=== PATIENT | female | born 1995 | race Caucasian/White ===

== ENCOUNTER 2024-08-08 20:21 | Emergency (ER) | payer OTHER, SELFPAY ==
[2024-08-08] VITALS (14 sets, daily range): BP systolic 111–122; BP diastolic 71–80; PULSE 55–65; RESP 12–19; TEMP 33.6–35.2; O2SAT 97–99
[2024-08-08] MEDS: DEXTROSE 50% 25 GM/50 ML SYRINGE IV PUSH ×2 (20:35→20:56)
[2024-08-08 20:45] LABS: Glucose Point of Care 74 mg/dl (65-105)
[2024-08-08 20:47] LABS: Glucose Point of Care < 20 mg/dl (65-105)
[2024-08-08 20:52] LABS: Basophils Absolute Auto 0.1 K/mm3 (0.0-0.1); Basophils Percent Auto 0.6 % (0.2-1.2); Eosinophils Absolute Auto 0.1 K/mm3 (0-0.3); Eosinophils Percent Auto 0.9 % (0-4.4); Hematocrit 42.3 % (37.0-47.0); Hemoglobin 14.2 g/dL (12.0-15.0); Immature Granulocyte Absolute 0.03 K/mm3 (0.00-0.031); Immature Granulocyte Percent A 0.3 % (0-0.5); Lymphocytes Absolute Auto 2.41 K/mm3 (0.9-3.2); Lymphocytes Percent Auto 22.8 % (18.3-44.2); Mean Corpuscular HGB Conc 33.6 g/dl (32-36); Mean Corpuscular Hemoglobin 31.3 pg (26-34); Mean Corpuscular Volume 93.2 fl (80-100); Mean Platelet Volume 9.9 fl (7.4-10.4); Monocytes Percent Auto 9.7 % (2.6-8.5); Neutrophils Percent Auto 65.7 % (45.5-73.1); Platelet Count Result 248 k/mm3 (150-375); Red Blood Count 4.54 M/mm3 (4.2-5.4); Red Cell Distribution Width 12.5 % (11.5-14.5); White Blood Count 10.6 K/mm3 (4.5-10.0)
[2024-08-08 21:09] LABS: Alanine Aminotransferase 18 U/L (6-35); Albumin Level 4.4 g/dL (3.5-5.1); Alkaline Phosphatase 43 U/L (38-126); Anion Gap 10 mmol/L (4-12); Aspartate Amino Transferase 26 U/L (14-36); Bilirubin,Total 0.2 mg/dL (0.2-1.3); Blood Urea Nitrogen 15 mg/dL (7-17); Calcium 9.2 mg/dL (8.4-10.2); Carbon Dioxide 24 mmol/L (22-30); Chloride 106 mmol/L (98-107); Estimated Glomerular Filt Rate > 60; Glucose 68 mg/dL (65-110); Potassium 2.7 mmol/L (3.4-5.0); Sodium 140 mmol/L (137-145)
--- NOTE | 2024-08-08 21:14 | ED.SYNCOPE ---
HPI - Syncope General Chief Complaint: Syncope Stated Complaint: diabetic-diaphoretic, syncope, confusion Time Seen by Provider: 08/08/24 20:45 Source: patient and family (friend) Mode of arrival: ambulatory Limitations: altered mental status History of Present Illness HPI narrative: Patient presents with altered mental status. Her friend provides history. Friend made dinner and had noted patient was in bed under the covers, presumably resting. Brought her dinner at 7:30 and she seemed groggy. WHen she checked on her again however, she hadn't eaten dinner and was not responding to questions. Patient was diaphoretic so friend brought her immediately to the ED. Patient takes Lantus 23U QHS; last dose was last night, not yet taken tonight. She also uses short acting Lispro 3U TID. Patient initially nor responding but history obtained after 1 amp glucose administered. She states she has been in her baseline state of health. Denies being unwell recently. no nausea, cough, diarrhea. No abdominal pain. She states she just waited too long to eat. Her PCP is Dr Armijo in [place]. Does not have an learning disabilities specialist but wants one. Is asking what her HA1C is since it was 11.3% when tested at her last PCP appointment, [birth year]. Related Data Allergies Allergy/AdvReac Type Severity Reaction Status Date / Time No Known Allergies Allergy Verified 08/08/24 20:56 COUNTS INCLUDE 234 BEDS AT THE [facility] Past Medical History Medical History (Updated 08/09/24 @ 20:04 by Norma Montano MD) Insulin dependent diabetes mellitus Type 1 diabetes mellitus Social History Social History Living arrangements: with roommate(s) Exam Narrative: GENERAL: well-nourished, and in no acute distress. HEAD: Normocephalic, atraumatic. EYES: Non injected, non icteric ENT: Nares clear, no rhinorrhea or epistaxis. NECK: Supple. CHEST: Speaking in full sentences. No respiratory distress. HEART: Bradycardic rate and rhythm. . ABDOMEN: Soft, nondistended. EXTREMITIES: Normal range of motion. No lower extremity edema. SKIN: Warm, dry, no rash. NEURO: No focal deficits. Alert and oriented x3. Still a bit groggy just after receiving first amp but answering questions. PSYCH: Normal mood and affect. Course Vital Signs Vital signs: Vital Signs Pulse Rate 55 L 08/08/24 20:35 Respiratory Rate 16 08/08/24 20:35 Blood Pressure 122/78 08/08/24 20:35 Pulse Oximetry 99 08/08/24 20:35 Oxygen Delivery Room Air 08/08/24 20:35 Temperature 97.4 F L 08/09/24 02:46 Pulse Rate 87 08/09/24 02:46 Respiratory Rate 12 08/09/24 02:46 Blood Pressure 118/63 08/09/24 02:46 Pulse Oximetry 98 08/09/24 02:46 Oxygen Delivery Room Air 08/08/24 22:29 MDM - Syncope MDM Narrative Medical decision making narrative: Patient with Type 1 diabetes mellitus presents after being found altered, minimally responsive and diaphoretic by friend/roommate. In the ED her VS are initially notable for mild bradycardia, suspect normal for her age and body habitus. Point care glucose in triage was 17mg/dL. Patient denies any preceding sick symptoms, only that she had taken her insulin but hadn't eaten. Patient received 1 amp of glucose initially with improvement of blood sugar to 74 mg/dL. Because she still remains intermittently confused, another amp is ordered. Patient has a critically low potassium level of 2.7. Oral and IV repletion/supplementation is ordered as is a magnesium lab. Mild leukocytosis. Patient noted to have a rectal temperature less than 94? F. Manny Hugger applied TSH ordered. Magnesium and TSH were both normal. Warm IV fluids ordered. Glucosuria. test negative. Repeat BMP now with hyperkalemia. Albuterol and glucagon administered. Possible hemolysis contributing. Her temperature normalizes, 97.3F. She has successfully p.o. challenged and has been on her phone per the nurse. Multiple blood glucose readings appropriate and stable. Patient discharged and advised to continue to take insulin, eat regularly, and follow up with PCP. Also provided contact info for learning disabilities specialist. Lab Data Attestation: I reviewed the patient's lab results. Lab results narrative: Normal renal function 08/08/24 20:46 08/09/24 00:20 Labs: Lab Results 08/08/24 08/08/24 08/08/24 Range/Units 20:29 20:43 20:45 WBC (4.5-10.0) K/mm3 RBC (4.2-5.4) M/mm3 Hgb (12.0-15.0) g/dL Hct (37.0-47.0) % MCV (80-100) fl MCH (26-34) pg MCHC (32-36) g/dl RDW (11.5-14.5) % Plt Count (150-375) k/mm3 MPV (7.4-10.4) fl Immature Gran % (Auto) (0-0.5) % Neut % (Auto) (45.5-73.1) % Lymph % (Auto) (18.3-44.2) % Imperial % (Auto) (2.6-8.5) % Eos % (Auto) (0-4.4) % Baso % (Auto) (0.2-1.2) % Lymph # (Auto) (0.9-3.2) K/mm3 Imperial # (Auto) (0.1-0.6) K/mm3 Eos # (Auto) (0-0.3) K/mm3 Baso # (Auto) (0.0-0.1) K/mm3 Abs Immat Gran (auto) (0.00-0.031) K/mm3 Absolute Neuts (auto) (1.3-6.7) K/mm3 Absolute Nucleated RBC (0.0-0.012) K/mm3 Nucleated RBC % (0.0-0.2) % Sodium (137-145) mmol/L Potassium (3.4-5.0) mmol/L Chloride (98-107) mmol/L Carbon Dioxide (22-30) mmol/L Anion Gap (4-12) mmol/L BUN (7-17) mg/dL Creatinine (0.7-1.0) mg/dL Estim Creat Clear Calc Estimated GFR (59 - ) Glucose (65-110) mg/dL POC Capillary Glucose < 20 L* 74 (65-105) mg/dl Hemoglobin A1c 6.4 H (<5.7) % Calcium (8.4-10.2) mg/dL Magnesium (1.6-2.3) mg/dL Total Bilirubin (0.2-1.3) mg/dL AST (14-36) U/L ALT (6-35) U/L Alkaline Phosphatase (38-126) U/L Total Protein (6.3-8.2) g/dL Albumin (3.5-5.1) g/dL TSH 0.852 (0.465-4.680) uIU/mL Urine Color (Yellow) Urine Appearance (Clear) Urine pH (5.0-9.0) Ur Specific [place] (1.001-1.035) Urine Protein (Negative) mg/dL Urine Glucose (UA) (Negative) mg/dL Urine Ketones (Negative) mg/dL Ur Blood (Man) (Negative) Urine Nitrate (Negative) Urine Bilirubin (Negative) Urine Urobilinogen (<2.0) mg/dL Leukocyte Esterase Rfl (Negative) EVAN/UL POC Urine HCG, Qual (Negative) 08/08/24 08/08/24 08/08/24 Range/Units 20:46 21:17 22:04 WBC 10.6 H (4.5-10.0) K/mm3 RBC 4.54 (4.2-5.4) M/mm3 Hgb 14.2 (12.0-15.0) g/dL Hct 42.3 (37.0-47.0) % MCV 93.2 (80-100) fl MCH 31.3 (26-34) pg MCHC 33.6 (32-36) g/dl RDW 12.5 (11.5-14.5) % Plt Count 248 (150-375) k/mm3 MPV 9.9 (7.4-10.4) fl Immature Gran % (Auto) 0.3 (0-0.5) % Neut % (Auto) 65.7 (45.5-73.1) % Lymph % (Auto) 22.8 (18.3-44.2) % Imperial % (Auto) 9.7 H (2.6-8.5) % Eos % (Auto) 0.9 (0-4.4) % Baso % (Auto) 0.6 (0.2-1.2) % Lymph # (Auto) 2.41 (0.9-3.2) K/mm3 Imperial # (Auto) 1.0 H (0.1-0.6) K/mm3 Eos # (Auto) 0.1 (0-0.3) K/mm3 Baso # (Auto) 0.1 (0.0-0.1) K/mm3 Abs Immat Gran (auto) 0.03 (0.00-0.031) K/mm3 Absolute Neuts (auto) 7.0 H (1.3-6.7) K/mm3 Absolute Nucleated RBC 0.000 (0.0-0.012) K/mm3 Nucleated RBC % 0.0 (0.0-0.2) % Sodium 140 (137-145) mmol/L Potassium 2.7 L* (3.4-5.0) mmol/L Chloride 106 (98-107) mmol/L Carbon Dioxide 24 (22-30) mmol/L Anion Gap 10 (4-12) mmol/L BUN 15 (7-17) mg/dL Creatinine 0.64 L (0.7-1.0) mg/dL Estim Creat Clear Calc Not Reportable Estimated GFR > 60 (59 - ) Glucose 68 (65-110) mg/dL POC Capillary Glucose 171 H 159 H (65-105) mg/dl Hemoglobin A1c (<5.7) % Calcium 9.2 (8.4-10.2) mg/dL Magnesium 1.9 (1.6-2.3) mg/dL Total Bilirubin 0.2 (0.2-1.3) mg/dL AST 26 (14-36) U/L ALT 18 (6-35) U/L Alkaline Phosphatase 43 (38-126) U/L Total Protein 8.0 (6.3-8.2) g/dL Albumin 4.4 (3.5-5.1) g/dL TSH (0.465-4.680) uIU/mL Urine Color (Yellow) Urine Appearance (Clear) Urine pH (5.0-9.0) Ur Specific [place] (1.001-1.035) Urine Protein (Negative) mg/dL Urine Glucose (UA) (Negative) mg/dL Urine Ketones (Negative) mg/dL Ur Blood (Man) (Negative) Urine Nitrate (Negative) Urine Bilirubin (Negative) Urine Urobilinogen (<2.0) mg/dL Leukocyte Esterase Rfl (Negative) EVAN/UL POC Urine HCG, Qual (Negative) 08/08/24 08/08/24 08/08/24 Range/Units 22:41 22:43 22:46 WBC (4.5-10.0) K/mm3 RBC (4.2-5.4) M/mm3 Hgb (12.0-15.0) g/dL Hct (37.0-47.0) % MCV (80-100) fl MCH (26-34) pg MCHC (32-36) g/dl RDW (11.5-14.5) % Plt Count (150-375) k/mm3 MPV (7.4-10.4) fl Immature Gran % (Auto) (0-0.5) % Neut % (Auto) (45.5-73.1) % Lymph % (Auto) (18.3-44.2) % Imperial % (Auto) (2.6-8.5) % Eos % (Auto) (0-4.4) % Baso % (Auto) (0.2-1.2) % Lymph # (Auto) (0.9-3.2) K/mm3 Imperial # (Auto) (0.1-0.6) K/mm3 Eos # (Auto) (0-0.3) K/mm3 Baso # (Auto) (0.0-0.1) K/mm3 Abs Immat Gran (auto) (0.00-0.031) K/mm3 Absolute Neuts (auto) (1.3-6.7) K/mm3 Absolute Nucleated RBC (0.0-0.012) K/mm3 Nucleated RBC % (0.0-0.2) % Sodium (137-145) mmol/L Potassium (3.4-5.0) mmol/L Chloride (98-107) mmol/L Carbon Dioxide (22-30) mmol/L Anion Gap (4-12) mmol/L BUN (7-17) mg/dL Creatinine (0.7-1.0) mg/dL Estim Creat Clear Calc Estimated GFR (59 - ) Glucose (65-110) mg/dL POC Capillary Glucose 116 H (65-105) mg/dl Hemoglobin A1c (<5.7) % Calcium (8.4-10.2) mg/dL Magnesium (1.6-2.3) mg/dL Total Bilirubin (0.2-1.3) mg/dL AST (14-36) U/L ALT (6-35) U/L Alkaline Phosphatase (38-126) U/L Total Protein (6.3-8.2) g/dL Albumin (3.5-5.1) g/dL TSH (0.465-4.680) uIU/mL Urine Color Yellow (Yellow) Urine Appearance Clear (Clear) Urine pH 6.0 (5.0-9.0) Ur Specific [place] 1.023 (1.001-1.035) Urine Protein Negative (Negative) mg/dL Urine Glucose (UA) 3+ H (Negative) mg/dL Urine Ketones Negative (Negative) mg/dL Ur Blood (Man) Negative (Negative) Urine Nitrate Negative (Negative) Urine Bilirubin Negative (Negative) Urine Urobilinogen 0.2 (<2.0) mg/dL Leukocyte Esterase Rfl Negative (Negative) EVAN/UL POC Urine HCG, Qual Negative (Negative) 08/08/24 08/08/24 08/09/24 Range/Units 23:23 23:57 00:20 WBC (4.5-10.0) K/mm3 RBC (4.2-5.4) M/mm3 Hgb (12.0-15.0) g/dL Hct (37.0-47.0) % MCV (80-100) fl MCH (26-34) pg MCHC (32-36) g/dl RDW (11.5-14.5) % Plt Count (150-375) k/mm3 MPV (7.4-10.4) fl Immature Gran % (Auto) (0-0.5) % Neut % (Auto) (45.5-73.1) % Lymph % (Auto) (18.3-44.2) % Imperial % (Auto) (2.6-8.5) % Eos % (Auto) (0-4.4) % Baso % (Auto) (0.2-1.2) % Lymph # (Auto) (0.9-3.2) K/mm3 Imperial # (Auto) (0.1-0.6) K/mm3 Eos # (Auto) (0-0.3) K/mm3 Baso # (Auto) (0.0-0.1) K/mm3 Abs Immat Gran (auto) (0.00-0.031) K/mm3 Absolute Neuts (auto) (1.3-6.7) K/mm3 Absolute Nucleated RBC (0.0-0.012) K/mm3 Nucleated RBC % (0.0-0.2) % Sodium 137 (137-145) mmol/L Potassium 5.6 H (3.4-5.0) mmol/L Chloride 108 H (98-107) mmol/L Carbon Dioxide 22 (22-30) mmol/L Anion Gap 7 (4-12) mmol/L BUN 12 (7-17) mg/dL Creatinine 0.52 L (0.7-1.0) mg/dL Estim Creat Clear Calc Not Reportable Estimated GFR > 60 (59 - ) Glucose 108 (65-110) mg/dL POC Capillary Glucose 122 H 109 H (65-105) mg/dl Hemoglobin A1c (<5.7) % Calcium 8.1 L (8.4-10.2) mg/dL Magnesium (1.6-2.3) mg/dL Total Bilirubin (0.2-1.3) mg/dL AST (14-36) U/L ALT (6-35) U/L Alkaline Phosphatase (38-126) U/L Total Protein (6.3-8.2) g/dL Albumin (3.5-5.1) g/dL TSH (0.465-4.680) uIU/mL Urine Color (Yellow) Urine Appearance (Clear) Urine pH (5.0-9.0) Ur Specific [place] (1.001-1.035) Urine Protein (Negative) mg/dL Urine Glucose (UA) (Negative) mg/dL Urine Ketones (Negative) mg/dL Ur Blood (Man) (Negative) Urine Nitrate (Negative) Urine Bilirubin (Negative) Urine Urobilinogen (<2.0) mg/dL Leukocyte Esterase Rfl (Negative) EVAN/UL POC Urine HCG, Qual (Negative) 08/09/24 08/09/24 Range/Units 00:47 02:20 WBC (4.5-10.0) K/mm3 RBC (4.2-5.4) M/mm3 Hgb (12.0-15.0) g/dL Hct (37.0-47.0) % MCV (80-100) fl MCH (26-34) pg MCHC (32-36) g/dl RDW (11.5-14.5) % Plt Count (150-375) k/mm3 MPV (7.4-10.4) fl Immature Gran % (Auto) (0-0.5) % Neut % (Auto) (45.5-73.1) % Lymph % (Auto) (18.3-44.2) % Imperial % (Auto) (2.6-8.5) % Eos % (Auto) (0-4.4) % Baso % (Auto) (0.2-1.2) % Lymph # (Auto) (0.9-3.2) K/mm3 Imperial # (Auto) (0.1-0.6) K/mm3 Eos # (Auto) (0-0.3) K/mm3 Baso # (Auto) (0.0-0.1) K/mm3 Abs Immat Gran (auto) (0.00-0.031) K/mm3 Absolute Neuts (auto) (1.3-6.7) K/mm3 Absolute Nucleated RBC (0.0-0.012) K/mm3 Nucleated RBC % (0.0-0.2) % Sodium (137-145) mmol/L Potassium (3.4-5.0) mmol/L Chloride (98-107) mmol/L Carbon Dioxide (22-30) mmol/L Anion Gap (4-12) mmol/L BUN (7-17) mg/dL Creatinine (0.7-1.0) mg/dL Estim Creat Clear Calc Estimated GFR (59 - ) Glucose (65-110) mg/dL POC Capillary Glucose 114 H 175 H (65-105) mg/dl Hemoglobin A1c (<5.7) % Calcium (8.4-10.2) mg/dL Magnesium (1.6-2.3) mg/dL Total Bilirubin (0.2-1.3) mg/dL AST (14-36) U/L ALT (6-35) U/L Alkaline Phosphatase (38-126) U/L Total Protein (6.3-8.2) g/dL Albumin (3.5-5.1) g/dL TSH (0.465-4.680) uIU/mL Urine Color (Yellow) Urine Appearance (Clear) Urine pH (5.0-9.0) Ur Specific [place] (1.001-1.035) Urine Protein (Negative) mg/dL Urine Glucose (UA) (Negative) mg/dL Urine Ketones (Negative) mg/dL Ur Blood (Man) (Negative) Urine Nitrate (Negative) Urine Bilirubin (Negative) Urine Urobilinogen (<2.0) mg/dL Leukocyte Esterase Rfl (Negative) EVAN/UL POC Urine HCG, Qual (Negative) ECG Data EKG #1: Attestation: I personally reviewed and interpreted this ECG as follows: ECG completion date: 08/09/24 ECG completion time: 01:01 Interpretation: Sinus bradycardia at a rate of 54 beats per minute. There is marked R to R variation consistent with sinus arrhythmia however no sinus pauses this may be due to respiratory variation especially given patient's age. MI interval 142. QRS 81. QT/QTC 430/417. Good R-wave progression across the precordial leads. No T-wave inversions. No peaked T-waves Discharge Plan Discharge Clinical Impression: Type 1 diabetes mellitus with hypoglycemia, Hypokalemia, Glucosuria Patient Disposition: Home, Self-Care Condition: Stable Instructions: Antibiotic Form, Hypokalemia (ED), Hypoglycemia in a Person with Diabetes (DC), Diabetes Type 1: Management (ED) Additional Instructions: Continue taking your medications as prescribed but it is also important to eat meals with your insulin. Follow-up with primary care physician who should be able to manage your diabetes but the name of an learning disabilities specialist is listed below. Return to the emergency department with any new or worsening symptoms. Patient Language: Swedish Follow-up/Referrals: Abel He MD [Physician] - (endocrinology) PHYSICIAN NOT ON STAFF,NONSTAFF [Non-Staff] - Stand Alone Forms: Work/School Release IP Time of Disposition: 02:47
[2024-08-08 21:19] LABS: Glucose Point of Care 171 mg/dl (65-105)
[2024-08-08 21:30] LABS: Magnesium 1.9 mg/dL (1.6-2.3)
--- OUTSIDE RECORDS SUMMARY | 2024-08-08 21:45 | XMS_ITS | Clinical Summary ---
Author Organization [facility] Address [address] [place] [address] Care Team Providers Care Senior Controller Name Role Phone Tej Armijo MD Primary Care Provider [phone] Allergies No known active allergies Medications amphetamine-de xtroamphetamin e (ADDERALL) 15 MG tablet Take 1 tablet (15 mg total) by mouth 2 (two) times a day. Before breakfast and noon 4 Active multi vitamin/minera ls (THERA-M ENHANCED) tablet Take 1 tablet by mouth daily. Active Alcohol Swabs (ALCOHOL PADS) 70 % PadsIndication s:DKA (diabetic ketoacidosis) ([facility] HHS/HCC) 1 Pad by Does not apply route 3 (three) times daily for 30 days. Use on area of skin prior to glucose reading and before insulin administration 120 each 4 Active metFORMIN (GLUCOPHAGE) 500 MG tablet Take one pill (500mg) daily in morning with breakfast for 7 days then take one pill twice a day in morning and in evening 60 tablet 4 Active Blood Glucose Monitoring Suppl (D-CARE GLUCOMETER) w/Device KitIndications :DKA (diabetic ketoacidosis) ([facility] HHS/HCC) 1 each by Does not apply route daily. 1 kit 4 Active insulin glargine (LANTUS) 100 UNIT/ML injection (PEN) Inject 25 Units into the skin nightly at bedtime. Please start taking lantus 25 U from 05/09/2024 15 mL 1 4 Active Continuous Glucose Sensor (DEXCOM G7 SENSOR) MiscIndication s:DKA (diabetic ketoacidosis) ([facility]) 1 each by Does not apply route daily. 1 each 4 Active Continuous Glucose [employer] Vp (DEXCOM G7 PIANO MOVER) DeviceIndicati ons:DKA (diabetic ketoacidosis) ([facility]) 1 each by Does not apply route daily. 1 each 1 4 Active Insulin Pen Needle 32G X 4 MM MiscIndication s:DKA (diabetic ketoacidosis) ([facility]) 1 Needle by Does not apply route as needed (as needed for glucose checks). 50 each 4 Active Resolved Problems Problem Noted Date Diagnosed Date Resolved Date Diabetic keto-acidosis ([facility]) 2024 05/08/2024 DKA (diabetic ketoacidosis) ([facility]) 05/07/20 24 05/08/2024 Social History Tobacco Use Types Packs/Day Years Used Date Smoking Tobacco: Never Passive Smoke Exposure: Never Smokeless Tobacco: Never Tobacco Cessation:Counseling Given: Not Answered [facility] [employer] Answer Date Recorded In the past 12 months has [facility] [employer] [place] gas, oil, or water Clone threatened to shut off services in your home? No 05/08/2024 Humiliation, Afraid, Rape, and Kick questionnair e Answer Date Recorded Within the last year, have y ou been afraid of your partner or ex-partner? No 05/08/2024 Within the last year, have y ou been humiliated or emotionally abused in other ways by your partner or ex-partner? No Within the last year, have y ou been kicked, hit, slapped, or otherwise physically hurt by your partner or ex-partner? No 05/08/2024 Within the last year, have y ou been raped or forced to have any kind of sexual activity by your partner or ex-partner? No 05/08/2024 Overall Financial Resource Strain (CARDIA) Answe r Date Recorded How hard is it for you to pa y for the very basics like food, housing, medical care, and heating? Not hard at all 05/08/2024 Hunger Vital Sign Answer Date Recorded Within the past 12 months, y ou worried that your food would run out before you got the money to buy more. Never true 05/08/20 24 Within the past 12 months, t he food you bought just didn't last and you didn't have money to get more. Never true 05/08/2024 PRAPARE - Transportation Answer Date Re corded In the past 12 months, has l ack of transportation kept you from medical appointments or from getting medications? No 04/19 In the past 12 months, has l ack of transportation kept you from meetings, work, or from getting things needed for daily living? No 05/08/2024 Housing Stability Vital Sign Answer Marshall e Recorded In the last 12 months, was t here a time when you were not able to pay the mortgage or rent on time? No 05/08/2024 In the past 12 months, how m any times have you moved where you were living? 1 05/08/2024 At any time in the past 12 m [facility], were you homeless or living in a longterm (including now)? No 05/08/2024 Comments Unknown Sex and Gender Information Value Date Recorded Sex Assigned at Not on file Legal Sex Female 7:41 PM CDT Gender Identity Not on file Sexual Orientation Not on file Last Filed Vital Signs Vital Sign Reading Time Taken Comments Blood Pressure 123/80 05/08/2024 4:07 PM COLD ROLL CATCHER Pulse 75 05/08/2024 4:07 PM [employer] C[employer]ER Temperature 36.8 C (98.2 F) 05/08/2024 4:07 PM [employer] RO[employer] C[employer]ER Respiratory Rate 20 05/08/2024 4:07 PM [employer] RO[employer] C[employer]ER Oxygen Saturation 100% 05/08/2024 4:07 PM C[employer] ROLL C[employer]ER Inhaled Oxygen Concentration - - Weight 49 kg (108 lb) 2024 12:14 PM [employer] C[employer]ER Height 167.6 cm (5' 6 ) 2024 12:14 PM [employer] RO[employer] C[employer]ER Body Mass Index 17.43 2024 12:14 PM C[employer] ROLL C[employer]ER Plan of Treatment Health Maintenance Due Date Last Done Comments Cervical Cancer Screening Pa p Smear (Age 21 to 29) Every 3 Years 1997 Cervical Cancer Screening 1997 Kidney Health Evaluation 1997 Annual Physical 2000 Pneumococcal Vaccine: Pediatrics (0 to 5 Years) and At-Risk Patients (6 to 64 Years) (1 of 2 - PCV) 2003 Diabetes: Retinopathy Eye Exam 2015 Hepatitis C 2015 DTaP, Tdap and Td Vaccines ( 1 - Tdap) 2016 Hepatitis B Vaccines (1 of 3 - 19+ 3-dose series) 2016 COVID-19 Vaccine (2 - 2023-2 5 season) 2024 10/04/2020 Influenza Adult (#1) 2024 04/22/2023, 04/06/2021, 03/28/2020 Hemoglobin A1C 08/05/2024 2024 Lipid Panel 2025 2024 HPV Vaccines Aged Out No longer eligi ble based on patient's age to complete this topic Meningococcal B Vaccine Aged Out No l onger eligible based on patient's age to complete this topic Meningococcal Vaccine Aged Out No montrell raquel eligible based on patient's age to complete this topic RSV Immunizations Under 20 Months Aged Out No longer eligible b ased on patient's age to complete this topic Procedures Procedure Name Priority Date/Time Associated Diagnosis Comments LIPID PANEL STAT 2024 12:34 PM COLD ROLL CATCHER HEMOGLOBIN, GLYCOSYLATED STAT 2024 12:34 PM COLD ROLL CATCHER from Last 3 Months or Most Recently Relevant to Health Maintenance Results * (ABNORMAL) HEMOGLOBIN, GLYCATED (2024 12:34 PM COLD ROLL CATCHER) HGB A1C 11.3(H) <5.7 % 2024 5:01 PM COLD ROLL CATCHER [facility] Comment: ADA GUIDELINES 2010 5.7 TO 6.4% INCREASED RISK OF DIABETES > OR = 6.5% CONSISTENT WITH DIABETES ESTIMATED AVG GLUCOSE 278 mg/dL 2024 5:01 PM COLD ROLL CATCHER [facility] 2024 12:3 4 PM COLD ROLL CATCHER Francis Noyola DO LABORATORY Final Result [facility] [address] [place] [address], * (ABNORMAL) LIPID PANEL (2024 12:34 PM COLD ROLL CATCHER) CHOLESTEROL 271(H) <200 MG/DL 2024 4:30 PM COLD ROLL C[employer]ER [facility] TRIGLYCERIDES 342(H) <150 MG/DL 2024 4:30 PM C[employer] ROLL C[employer]ER [facility] HDL 52 >40.0 MG/DL 2024 4:30 PM COLD ROLL C[employer]ER [facility] LDL (CALCULATED) 151(H) <100 MG/DL 2024 4:30 PM COLD ROLL C[employer]ER [facility] NON HDL CHOLESTEROL 219(H) <130 MG/DL 2024 4:30 PM [facility] CHOL/HDL RATIO 5.2(H) 0.0 - 4.5 2024 4:30 PM COLD ROLL CATCHER [facility] VLDL CALCULATION 68(H) 5 - 55 MG/DL 2024 4:30 PM [facility] LIPID INTERPRETATION 2024 4:30 PM [facility] Comment: NIH CONCENSUS REPORT RECOMMENDATIONS: ADULT CHILD LOW RISK: CHOLESTEROL <200 <170 TRIGLYCERIDE <150 --- HDL >=60 --- LDL <100 <110 BORDERLINE: CHOLESTEROL 200-239 170-199 TRIGLYCERIDE 150-199 --- HDL 40-59 --- LDL 100-159 110-129 HIGH RISK: CHOLESTEROL >=240 >=200 TRIGLYCERIDE >=200 --- HDL <40 --- LDL >=160 >=130 2024 12:3 4 PM COLD ROLL CATCHER us Francis Noyola DO LABORATORY Final Result [facility] [address] [facility] [place] [address], from Last 3 Months or Most Recently Relevant to Health Maintenance Advance Directives * Full Code (Latest Code Status on File) Date Activated Date Inactivated Comments 2024 2:50 PM 05/08/2024 7:38 PM Care Teams Senior Controller Relationship Specialty Start Date End Date Tej Armijo MD [address] [place] [address] PCP - General FAMILY PRACTICE 05/07/24
--- OUTSIDE RECORDS SUMMARY | 2024-08-08 21:45 | XMS_ITS | Continuity of Care Document ---
Author Organization [facility]. 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 Name Role Phone Unavailable Unavailable Unavailable Unavailable Unavailable Unavailable Unavailable Unavailable Unavailable Unavailable Unavailable Unavailable Problems Worried well Onset:13-Nov-2023 Tara Gil DO Allergies and Adverse Reactions No Known Drug Allergies(Eddie rgy) Onset: 13-Nov-2023 Social History Smoking Status Never smoked tobacco Recorded: 13-Nov-2023 Vital Signs 13-Nov-2023 15:55 Twwuvrgibiz25.7f Comments:97.7 Pulse63 Comments:63 Respiratory Rate20 Comments:20 O2 SAT99% Comments:99 BP Fwetjcaz254oc[Hg] Comments:13 4 BP Dihmsejtk69wl[Hg] Comments:82 Height5.5[ft_us] Comments:5 Xuvdmy75.545kg Comments:54.545 13-Nov-2023 15:55 BMI19.4kg/m2 Comments:19.4 Encounters Emergency Encounter Reason: VAG DISCOMFORT Encounter Diagnosis:ENCTR FOR OBS FOR SUSPECTED INSERTED (INJECTED) FB RULED OUT 13-Nov-2023 15:[id number] 16:50 [facility] Discharge Disposition:Discharged to home or self care (routine discharge) Tara Gil DO-13-Nov-2023 [facility] ([facility])EMERGENCY PROVIDER REPORTREPORT#:[id number] REPORT STATUS: SignedDATE:11/13/23 TIME: 1558PATIENT: DIMPLE ABDI UNIT #: [id number]#: [id number] ROOM/BED:AGE: 28 SEX: F PCP PHYS:SERVICE DT: AUTHOR: Jeffery Pacheco DO* ALL edits or amendments must be made on the electronic/computer document *HPI-General IllnessGeneralInitial Greet Date/Time 11/13/23 1548PresentationChief Complaint Vaginal foreign bodyFree Text HPI NotesFree Text HPI NotesPatient has 28-year-old female who presents to the emergency department forevaluation of possible vaginal foreign body. Patient states she put in a tamponearlier today and has not removed it. Patient went to urgent care and statesshe received a speculum exam which did not show a tampon. However, patientstates she is certain that the tampon is still present and therefore shepresents to the emergency department for further evaluationReview of SystemsROS StatementsAll systems rev neg except as marked.Past Medical History - AdultStated Complaint VAG DISCOMFORT AllergiesCoded Allergies:No Known Drug Allergies (11/13/23)Calculated Suicide Risk (nurs) No riskSmoking status for patients 13 years old or older: Never SmokerPhysical ExamVital SignsVital SignsFirst Documented: Result Date Time Pulse Ox 99 11/12 1555 B/P 134/82 11/12 1555 B/P Mean 99 11/12 1555 O2 Delivery Room air 11/12 1555 Temp 36.5 11/12 1555 Pulse 63 11/12 1555 Resp 20 11/12 1555Last Documented: Result Date Time Pulse Ox 99 11/12 1555 B/P 134/82 11/12 1555 B/P Mean 99 11/12 1555 O2 Delivery Room air 11/12 1555 Temp 36.5 11/12 1555 Pulse 63 11/12 1555 Resp 20 11/12 1555Review of Vital Signs ReviewedFree Text PE NotesFree Text PE NotesGen: A OHEENT: NCAT, EOMI, not icteric. External ears normal. No rhinorrhea. Moistmucous membranes.Neck: Supple, full range of motion, no observable masses, No meningeal sign.Lungs: No Respiratory distress. Clear to auscultationCV: RRR, no edema.: Speculum exam performed. No vaginal foreign body notedAbdomen: Soft, nondistended, No rebound tenderness.MSK: No joint swelling, no redness.Skin: No rashes, petechiae, lesions. Normal color per patient.Neuro: Speech is clear and appropriate.Psych: Patient is tearfulPatient Discharge DepartureVital Signs/ConditionVital SignsFirst Documented: Result Date Time Pulse Ox 99 11/12 1555 B/P 134/82 / 1555 B/P Mean 99 11/12 1555 O2 Delivery Room air 11/12 1555 Temp 36.5 11/12 1555 Pulse 63 11/12 1555 Resp 20 11/12 1555Last Documented: Result Date Time Pulse Ox 99 11/12 1555 B/P 134/82 11/12 1555 B/P Mean 99 11/12 1555 O2 Delivery Room air 11/12 1555 Temp 36.5 11/12 1555 Pulse 63 11/12 1555 Resp 20 11/12 1555All vital signs available at the time of this entry have been reviewed.Condition StableClinical ImpressionClinical ImpressionPrimary Impression: Feared condition not demonstratedTime of Impression 1634Disposition DecisionDischarge )( Discharged to Home YesDischarge/Care PlanCounseled Regarding DiagnosisAdditional InstructionsPlease follow-up with your OBGYNReferralsProvider Referral: Gail Martinez DO Address: [address] [place] [address] [address] [place] [id number] Discharge NoteI have spoken with the patient and/or caregivers. I have explained the patient'scondition, diagnoses and treatment plan based on the information available to meat this time. I have answered the patient's and/or caregiver's questions andaddressed any concerns. The patient and/or caregivers have as good anunderstanding of the patient's diagnosis, condition and treatment plan as can beexpected at this point. The vital signs have been stable. The patient'scondition is stable and appropriate for discharge from the emergency department.The patient will pursue further outpatient evaluation with the primary carephysician or other designated or consulting physician as outlined in thedischarge instructions. The patient and/or caregivers are agreeable to this planof care and follow-up instructions have been explained in detail. The patientand/or caregivers have received these instructions in written format and haveexpressed an understanding of the discharge instructions. The patient and/orcaregivers are aware that any significant change in condition or worsening ofsymptoms should prompt an immediate return to this or the closest emergencydepartment or a call to 911. at 1636RPT #: [id number] OF REPORT Plan of Treatment Please follow-up with your OBGYN Future Tests Future scheduled test information is unavailable Pending Tests Pending diagnostic test information is unavailable Future Visits Future appointment information is unavailable Referrals to Other Providers Reason for Referral Referral Start Date Provider Provider Contact Information Provider Address Gail Rodriguez DO Work Phone: [address] [facility] [address] Future Procedures Future procedure information is unavailable Future Medications Future medication information is unavailable Patient Instructions Patient instructions are unavailable Assessments Diagnosis Onset Date Resolution Status Feared condition not demonstrated Active
--- OUTSIDE RECORDS SUMMARY | 2024-08-08 21:46 | XMS_ITS | Data Portability ---
Author Organization [facility], [facility], [facility] Address [address] [facility] [address] [place] [address] Assessment No assessment recorded. Plan of Treatment Reminders Order Date Submit Date Provider Last Modified By Organization Details Last Modified Time Details Appointments None recorded. Lab None recorded. Referral gynecologis t referral 2023 024 [email or web address] Not available 09:52:19 Procedures None recorded. Surgeries None recorded. Imaging None recorded. Medication Orders None recorded. Patient TargetsNo targets recorded. 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 Procedure Notes None recorded. Medical Equipment None Reported. Allergies No known drug allergies Medications Name Sig Start Date Stop Date Status Note LastModified by Organization Details LastModified Time doxycycline hyclate active Not Available Not Available Not Available Adderall active Not Available Not Avai lable Not Available Vitals Date Recorded Heart rate Respiratory rate Oxygen saturation Oxygen saturation in Arterial blood by Pulse oximetry Body temperature Body height Body weight Systolic blood pressure Diastolic blood pressure Provider Name and Address Organization Details Last Updated DateTime 4 62 /min 18 /min 99 % 99 % 99 [degF] 167.64 cm 69947.0 8 g 123 mm[Hg] 73 mm[Hg] Kate Atkinson [facility] 16:19:42 Social History Question Answer Notes LastModified by Organizat ion Details LastModified Time Tobacco Smoking Status Never Smoker Kate Atkinson [facility], [facility] 11/13/2023 16:21:00 Alcohol Use None [email or web address] Information n ot available 11/13/2023 Sex: Unknown Functional Status None recorded. Mental Status None recorded. Family History Nothing Reported. Medical History Condition Response Coronary Artery Disease N Gout N Other N Anxiety/Depression N Atrial Fibrillation N Hyperthyroidism N Migraines N ADD N COPD N Hypothyroidism N Discussed with patient No Past Medical H x N Anemia N Acid Refulx/GERD N Cabg (CABG) N Diabetes N CHF N Cancer N Stroke N Diverticulitis N Asthma N Heart Attack N ADHD N Seizures N Skin disorder N High Cholesterol N PCOS N Hypertension N Gynecological HistoryNo gynecological history recorded. Obstetrics History GPAL:G 0 P 0 0 0 0 Past Encounters Encounter ID Performer Location Encounter Start Date Encounter Closed Date Diagnosis/Indication Diagnosis SNOMED-CT Code Diagnosis ICD10 Code Diagnosis Note [id number] MARILYN JHAVERI [address] [address] 11/13/2023 16:10:46 11/13/2023 16:33:29 Disorder of vagina 73054096 N89.9 Health Concerns Section Related Observation LastModified by Organization Detai ls LastModified Time None Recorded Concern Status LastModified by Organization Details LastModified Time None Recorded Advance Directives Directive None Recorded Payers Encounter Date Sequence Insurance Name Policy Number Policy Dorman Covered Member ID Dorman Member ID Guarantor Name 11/13/2023 1 *SELF PAY* Sa arnold [place] Notes Date Note Type Note Provider Name a nd Address Organization Details Recorded Time 11/13/2023 text/html problems-Female Reported bypatient.Locat ion:vagina Onset/ Duration:day(s) ago Timing:abrupt onset Context:no sexual dysfunction; no prior history of STDs; heterosexual; vaginal intercourse; thinks she has a retained tampon Associated Symptoms:no flank pain; no blood in the urine; no pain during urination; no vaginal discharge; no urgency MARILYN STEELE [address], [place], [address], [facility], [facility] 11/13/2023 16:31:14 OBGyn Episode No OBEpisode recorded.
[2024-08-08 21:58] LABS: Hemoglobin A1C 6.4 % (<5.7)
[2024-08-08] MEDS: POTASSIUM BICARBONATE 25 MEQ TABEF 50 MEQ PO (22:02)
[2024-08-08] MEDS: SODIUM CHLORIDE 0.9% IV 250 ML 75 ML (22:03)
[2024-08-08] MEDS: KCL 20 MEQ/SW 100 ML 100 ML 50 MEQ IVPB (22:03)
[2024-08-08 22:06] LABS: Glucose Point of Care 159 mg/dl (65-105)
[2024-08-08 22:26] LABS: Thyroid Stimulating Hormone 0.852 uIU/mL (0.465-4.680)
[2024-08-08] MEDS: SODIUM CHLORIDE 0.9% IV 1,000 ML 999 ML IV CONT (22:39)
--- NOTE | 2024-08-08 22:39 | PC.NURSE ---
Pt core temperature 94.3. Manny perea on pt. RN placed pt on fluid warmer. Pt aox4 on assessment at this time.
[2024-08-08 22:46] LABS: BEDSIDEPREGUCG Negative (Negative)
[2024-08-08 22:49] LABS: Glucose Point of Care 116 mg/dl (65-105)
[2024-08-08 22:54] LABS: Add Urine Microscopic? NO; Appearance Urine Clear (Clear); Bilirubin Urine Negative (Negative); Blood Urine Negative (Negative); Color Urine Yellow (Yellow); Glucose Urine UA 3+ mg/dL (Negative); Ketones Urine Negative (Negative); Leukocyte Esterase Ur Negative LEU/UL (Negative); Nitrate Urine Negative (Negative); Protein Urine Negative (Negative); Specific Grav Ur 1.023 (1.001-1.035); Urobilinogen Urine 0.2 mg/dL (<2.0)
[2024-08-08 23:25] LABS: Glucose Point of Care 122 mg/dl (65-105)
[2024-08-08 23:59] LABS: Glucose Point of Care 109 mg/dl (65-105)
[2024-08-09] VITALS (13 sets, daily range): BP systolic 111–127; BP diastolic 60–71; PULSE 66–91; RESP 10–14; TEMP 35.3–36.3; O2SAT 98–100
[2024-08-09 00:35] LABS: Anion Gap 7 mmol/L (4-12); Blood Urea Nitrogen 12 mg/dL (7-17); Calcium 8.1 mg/dL (8.4-10.2); Carbon Dioxide 22 mmol/L (22-30); Chloride 108 mmol/L (98-107); Estimated Glomerular Filt Rate > 60; Glucose 108 mg/dL (65-110); Potassium 5.6 mmol/L (3.4-5.0); Sodium 137 mmol/L (137-145)
[2024-08-09 00:50] LABS: Glucose Point of Care 114 mg/dl (65-105)
--- NOTE | 2024-08-09 00:52 | ECG_ITS ---
Test Date: 2024-08-09 01:01:35 Measurements Intervals [place] Rate: 54 P: 56 VA: 142 QRS: 65 QRSD: 81 T: 40 QT: 430 QTc: 410 Interpretive Statements SINUS BRADYCARDIA WITH MARKED SINUS ARRHYTHMIA No previous ECG available for comparison Electronically Signed On 08-10-2024 15:25:10 CDT by Joe Mitchell M.D.
[2024-08-09] MEDS: ALBUTEROL SULFATE NEB 2.5 MG/3 ML INH 10 MG INHALATION (01:04)
[2024-08-09] MEDS: CALCIUM GLUCONATE 1,000 MG/10 ML VIAL 1000 MG IV PUSH (01:07)
[2024-08-09] MEDS: SODIUM CHLORIDE 0.9% IV 100 ML 500 ML (01:11)
[2024-08-09 02:23] LABS: Glucose Point of Care 175 mg/dl (65-105)
== END 2024-08-09 03:05 | disposition home or self-care (01) ==
PROVIDERS: Emergency Provider Student in an Organized Health Care Education/Training Program; PCP Family Medicine
DX: E10.649 Type 1 diabetes mellitus with hypoglycemia without coma (principal); Z79.4 Long term (current) use of insulin; E87.6 Hypokalemia
CPT/HCPCS: 36415; 80048; 80053; 81003; 81025; 82948; 83036; 83735; 84443; 85025; 93005; 94640; 96365; 96366; 96375; 99284; A9270; J0612; J3480; J7030; J7050